=== PATIENT | female | born 1985 | race Caucasian/White ===

== ENCOUNTER → 2016-06-01 | Outpatient (CLI) | payer BC ==
[~2016-06-01] MED LIST: BCPILLS PO; SULF800T23 PO
[2016-06-01 09:42] LABS: HEMATOCRIT 37.7 % (37-47); MEAN CELL VOLUME 88.9 fL (80-100); MEAN CORPUSCULAR HEMOGLOBIN 31.6 pg (25-34); MEAN CORPUSCULAR HGB CONC 35.5 g/dl (32-36); MEAN PLATELET VOLUME 10.2 fL (7.4-10.4); PLATELET COUNT 215 K/uL (130-400); RED BLOOD COUNT 4.24 M/uL (4.2-5.4); WHITE BLOOD COUNT 4.32 K/uL (4.8-10.8)
[2016-06-01 10:10] LABS: PROLACTIN 6.57 ng/mL
[2016-06-01 11:32] LABS: BASO % 1.2 %; BASO ABS # 0.05 K/uL (0-0.2); COMPLETE YES; EOS % 2.5 %; LYMPH % 50.7 %; LYMPH ABS # 2.19 K/uL (1.2-3.4); MONO % 5.3 %; NEUT % 40.3 %
[2016-06-01 11:36] LABS: SMUDGE CELLS PRESENT
== END | disposition home or self-care (01) ==
LOC: C.LAB1850 07:54
PROVIDERS: ATTEND Obstetrics & Gynecology
DX: Z31.69 Encounter for other general counseling and advice on procreation (principal); Z31.41 Encounter for fertility testing

== ENCOUNTER → 2016-06-26 | Outpatient (CLI) | payer BC | END | disposition home or self-care (01) | LOC: C.LAB1850 09:13 | PROVIDERS: ATTEND Obstetrics & Gynecology | DX: Z32.01 Encounter for pregnancy test, result positive (principal) ==

== ENCOUNTER → 2016-07-04 | Outpatient (CLI) | payer BC | END | disposition home or self-care (01) | LOC: C.LABSPEC 16:07 | PROVIDERS: ATTEND Dermatology | DX: L08.9 Local infection of the skin and subcutaneous tissue, unspecified (principal) ==

== ENCOUNTER → 2016-07-17 | Outpatient (CLI) | payer BC ==
[2016-07-17 18:15] LABS: URINE APPEARANCE CLEAR (CLEAR); URINE BILIRUBIN NEG (NEG); URINE COLOR YELLOW; URINE NITRITE NEG (NEG); URINE SPECIFIC GRAVITY 1.021 (1.000-1.030); UROBILINOGEN NEG (NEG)
[2016-07-17 18:18] LABS: MANUAL MICROSCOPIC REQUIRED? NO; REVIEW REQ? NO
== END | disposition home or self-care (01) ==
LOC: C.LABSPEC 17:53
PROVIDERS: ATTEND Obstetrics & Gynecology
DX: O09.01 Supervision of pregnancy with history of infertility, first trimester (principal)

== ENCOUNTER → 2016-07-26 | Outpatient (CLI) | payer BC ==
[2016-07-28 01:09] LABS: CHLAMYDIA TRACH RNA*** NOT DETECTED (NOT DETECTED); GC (NEIS GONORRHOEAE)RNA** NOT DETECTED (NOT DETECTED)
== END | disposition home or self-care (01) ==
LOC: C.LABSPEC 10:48
PROVIDERS: ATTEND Obstetrics & Gynecology
DX: O09.01 Supervision of pregnancy with history of infertility, first trimester (principal); Z3A.00 Weeks of gestation of pregnancy not specified; Z01.419 Encounter for gynecological examination (general) (routine) without abnormal findings

== ENCOUNTER → 2016-07-26 | Outpatient (CLI) | payer BC | END | disposition home or self-care (01) | LOC: C.PAPS 13:49 | PROVIDERS: ATTEND Obstetrics & Gynecology | DX: Z01.419 Encounter for gynecological examination (general) (routine) without abnormal findings (principal) ==

== ENCOUNTER → 2016-09-24 | Outpatient (CLI) | payer BC ==
[2016-09-24 10:19] LABS: GTGD 50 Grams
== END | disposition home or self-care (01) ==
LOC: C.LAB1850 09:06
PROVIDERS: ATTEND Obstetrics & Gynecology
DX: O09.02 Supervision of pregnancy with history of infertility, second trimester (principal)

== ENCOUNTER → 2016-12-17 | Outpatient (CLI) | payer BC ==
[2016-12-17 11:08] LABS: URINE APPEARANCE CLEAR (CLEAR); URINE BILIRUBIN NEG (NEG); URINE COLOR DK YELLOW; URINE EPITHELIAL CELL AUTO 20-30 /lpf (0-5); URINE NITRITE NEG (NEG); URINE SPECIFIC GRAVITY 1.022 (1.000-1.030); UROBILINOGEN NEG (NEG)
[2016-12-17 11:09] LABS: MANUAL MICROSCOPIC REQUIRED? NO; REVIEW REQ? NO
[2016-12-17 12:16] LABS: HEMATOCRIT 33.8 % (37-47)
[2016-12-17 12:36] LABS: GTGD 50 Grams
== END | disposition home or self-care (01) ==
LOC: C.LAB1850 09:33
PROVIDERS: ATTEND Obstetrics & Gynecology
DX: O09.02 Supervision of pregnancy with history of infertility, second trimester (principal)

== ENCOUNTER → 2017-02-08 | Outpatient (CLI) | payer BC | END | disposition home or self-care (01) | LOC: C.LABSPEC 17:29 | PROVIDERS: ATTEND Obstetrics & Gynecology | DX: O09.03 Supervision of pregnancy with history of infertility, third trimester (principal) ==

== ENCOUNTER 2017-03-09 00:27 | Inpatient (IN) | payer BC ==
[~2017-03-09] VITALS: Ht 160 cm; Wt 68.3 kg
[2017-03-09] MEDS ORDERED: PRENTAB26 PO (01:09)
[2017-03-09 01:11] VITALS: Ht 160 cm; Wt 68.3 kg
[2017-03-09] MEDS ORDERED: BUPIVACAINE 0.25% 30 ML VIAL ONE (03:48)
[2017-03-09] MEDS ORDERED: EpHEDrine SULFATE INJ 50 MG/ML AMP ONE (03:48)
[2017-03-09] MEDS ORDERED: FENTANYL CITRATE INJ 50 MCG/1 ML 2 ML VIAL ONE (03:48)
[2017-03-09] MEDS ORDERED: LACTATED RINGER'S 1000ML 1,000 ML IV PRN ×2 (03:50→04:46)
[2017-03-09] MEDS ORDERED: FENTANYL 2MCG/ML ROPIV 1.25MG/ML 100ML BAG EPI ONE (03:52)
[2017-03-09 04:37] LABS: HEMOGLOBIN 12.2 g/dL (12.0-16.0); MEAN CELL VOLUME 89.2 fL (80-100); MEAN PLATELET VOLUME 10.9 fL (7.4-10.4); PLATELET COUNT 178 K/uL (130-400); RED CELL DISTRIBUTION WIDTH CV 12.2 % (11.5-14.5); RED CELL DISTRIBUTION WIDTH SD 39.3 fL (36.4-46.3); WHITE BLOOD COUNT 14.95 K/uL (4.8-10.8)
[2017-03-09] MEDS ORDERED: LACTATED RINGER'S 1000ML 1,000 ML IV SCH (04:46)
[2017-03-09 04:59] LABS: MEAN CORPUSCULAR HGB CONC 35.9 g/dl (32-36)
[2017-03-09] MEDS ORDERED: NALOXONE HCL INJ 1 MG in SODIUM CHLORIDE 0.9% 1000ML 1,000 ML IV PRN (05:22)
[2017-03-09] MEDS ORDERED: LACTATED RINGER'S 1000ML 500 ML IV PRN ×2 (05:22→13:18)
[2017-03-09] MEDS ORDERED: EpHEDrine SULFATE INJ 50 MG/ML AMP IV PRN (05:30)
[2017-03-09] MEDS ORDERED: NALBUPHINE HCL INJ 10 MG/ML AMP IV PRN (05:30)
[2017-03-09] MEDS ORDERED: DiphenhydrAMINE HCL 50 MG/ML VIAL IV PRN (05:30)
[2017-03-09] MEDS ORDERED: NALOXONE HCL INJ 0.4 MG/1 ML VIAL/CARP IV PRN (05:30)
[2017-03-09] MEDS ORDERED: ONDANSETRON INJ 2 MG/ML 2 ML VIAL IV PRN (05:30)
[2017-03-09] MEDS: FENTANYL 2MCG/ML ROPIV 1.25MG/ML 100ML BAG EPI PRN ×2 (06:54→14:44)
[2017-03-09] MEDS: LACTATED RINGER'S 1000ML 1,000 ML IV SCH ×2 (06:55→09:31)
[2017-03-09] MEDS ORDERED: OXYTOCIN 30 UNITS/500ML NSS IV ONE (13:26)
[2017-03-09] MEDS ORDERED: OXYTOCIN 30 UNITS/500ML NSS IV PRN ×2 (13:30→17:15)
--- NOTE | 2017-03-09 16:58 | Anesthesia Procedure Note ---
Anesthesia Epidural Removal Nt Date & Time Mar 09, 2017 at 16:57 Vital Signs Pain Intensity: 0.0 Notes Mental Status: alert / awake / arousable, participated in evaluation Nausea / Vomiting: adequately controlled Pain: adequately controlled Airway Patency, RR, SpO2: stable & adequate BP & HR: stable & adequate Hydration State: stable & adequate Neuraxial Anesthesia: was administered, sensory block is resolving Anesthetic Complications: no major complications apparent, pt satisfied with anesthetic care Epidural: removed without complications, with tip intact
[2017-03-09] MEDS ORDERED: ACETAMINOPHEN 325 MG TAB PO PRN (17:15)
[2017-03-09] MEDS ORDERED: SUPERCREAM 0.870 % 15GM JAR EXT PRN (17:15)
[2017-03-09] MEDS ORDERED: BENZOCAINE 20% AER SPR 82.5 GM CAN EXT PRN (17:15)
[2017-03-09] MEDS ORDERED: OXYCODONE/ACETAMINOPHEN 5-325 TAB PO PRN (17:15)
[2017-03-09] MEDS ORDERED: LANOLIN OINT EXT PRN (17:15)
[2017-03-09] MEDS ORDERED: IBUPROFEN 600 MG TAB ONE (18:17)
--- NOTE | 2017-03-09 18:45 | DELIVERY SUMMARY ---
DATE OF OPERATION: 03/09/2017 The patient is a 31-year-old G1, P0 white female EDC of 03/06/2017 who presented in spontaneous labor. She progressed to 6-7 cm dilated, membranes were ruptured for clear fluids. She had effective epidural analgesia. She pushed intermittently because of moderate variables with pushing until there was resolution of the variables. The contractions were noted to have spaced out. Pitocin augmentation was begun. She then was able to push more effectively, however there was continued to be moderate variables with pushing and there was evidence of maternal exhaustion and decreased effort. The vacuum was placed on the outlet vertex after emptying the bladder for 250 mL of urine. Through 1 contraction, the head was brought to . Through the next contraction, the patient was able to push the infant out. Mouth and nasopharynx were suctioned on the perineum. The infant was placed on the mother's abdomen for further warming and attention. Cord was short and was clamped and cut prior to 30 seconds after delivery. There was spontaneous cry. Apgars were 7 and 9. The placenta was expressed intact with a 3-vessel cord. A second-degree perineal laceration was repaired with 3-0 chromic in the usual fashion . Estimated blood loss was 250 mL. Mother and were doing well after delivery. I attest to the content of the Intraoperative Record and any orders documented therein. Any exceptions are noted below. MTDD
[2017-03-09] MEDS ORDERED: OXYCODONE/ACETAMINOPHEN 5-325 TAB ONE (18:49)
[2017-03-09 19:45] VITALS: BP 110/69; PULSE 89; TEMP 36.8
[2017-03-09] MEDS: DOCUSATE SODIUM 100 MG CAP PO SCH (21:02)
[2017-03-10 00:01] VITALS: BP 101/61; PULSE 73; TEMP 36.8
[2017-03-10] MEDS: IBUPROFEN 600 MG TAB PO PRN ×4 (02:12→18:16)
[2017-03-10 03:50] VITALS: BP 106/67; PULSE 80; TEMP 36.8
[2017-03-10 06:01] LABS: HEMATOCRIT 32.2 % (37-47); HEMOGLOBIN 11.2 g/dL (12.0-16.0)
[2017-03-10 07:55] VITALS: BP 97/61; PULSE 84; TEMP 36.7; O2SAT 97
--- NOTE | 2017-03-10 08:50 | Progress Note ---
Subjective Mar 10, 2017. Subjective conversation w/ patient, physical exam Ambulation: ambulating normally Comment: had to be straight cathed for 1250 ccof urine last night. since then she has been able to void without difficulty Review of Systems Constitutional: No fever, No chills, No sweats, No weight loss, No weakness, No fatigue, No problem reported Abdomen: No pain, No nausea, No vomiting, No diarrhea, No constipation, No GI bleeding, No problem reported Female : No see HPI, No dysuria, No urinary frequency, No hematuria, No incontinence, No abnormal vaginal bleeding, No vaginal discharge, No problem reported Objective Vital Signs Date Time Temp Pulse Resp B/P (MAP) Pulse Ox O2 Delivery O2 Flow Rate FiO2 03/10/17 07:55 36.7 84 15 97/61 (73) 97 Room Air 03/10/17 03:50 36.8 80 18 106/67 (80) Room Air 03/10/17 00:01 Room Air 03/10/17 00:01 36.8 73 18 101/61 (74) Room Air 03/09/17 19:45 36.8 89 18 110/69 (83) Room Air Physical Exam General Appearance: WELL-APPEARING, NO APPARENT DISTRESS Abdomen: non tender, soft Fundus: Firm, Non-Tender Incision Description: Drainage Circled (1 below u) Extremities: no calf tenderness Laboratory Results Last 24 Hours Test 03/10/17 05:35 Hemoglobin 11.2 g/dL Hematocrit 32.2 % Assessment and Plan Day#: 1 Continue Routine Care: stable course continue current care plan.
[2017-03-10] MEDS: DOCUSATE SODIUM 100 MG CAP PO SCH ×2 (09:05→20:02)
[2017-03-10] MEDS: PRENATAL VITAMIN TAB PO SCH (09:06)
[2017-03-10 10:59] VITALS: BP 128/71; PULSE 82; TEMP 36.5; O2SAT 98
[2017-03-10 15:30] VITALS: BP 115/72; PULSE 81; TEMP 36.4
[2017-03-10] MEDS ORDERED: BISACODYL 5 MG TABEC PO SCH (20:00)
[2017-03-10 23:30] VITALS: BP 110/73; PULSE 66; TEMP 36.5
--- NOTE | 2017-03-11 03:08 | Discharge Instructions ---
Discharge Instructions Date of Service Mar 11, 2017. Admission Reason for Admission: LABOR Discharge Discharge Diagnosis / Problem: normal labor & delivery Discharge Goals Goal(s): Routine recovery after delivery Medications Continue Dispensed Medications: supercream, dermaplast, tucks, lansinoh Activity Recommendations Activity Limitations: per Instructions/Follow-up section . Instructions / Follow-Up Instructions / Follow-Up ACTIVITY RECOMMENDATIONS: * Gradual return to full activity over the next 2-3 weeks. * No lifting - nothing heavier than baby over the next 2-3 weeks. * Do not engage in vigorous exercise, sexual activity or sports until cleared by your physician. * Do not drive or operate any motorized equipment until cleared by your physician. * You may shower/bathe daily. MEDICATIONS: For discomfort or pain, you may use Acetaminophen (Tylenol), Ibuprofen (Advil), or Naproxen (Aleve) following the package directions. For constipation you may use Colace following the package directions. BREAST CARE: If you are not breast feeding: * Wear a supportive bra 24 hours a day for one to two weeks. * Avoid stimulating your breasts and nipples as much as possible during the first few weeks after delivery. * When taking a shower, have the warm water hit your back, not breasts. * When your breasts feel full, apply ice packs. Usually three to four times a day helps ease the discomfort. * Take a mild pain medication (Tylenol / Motrin) when you are uncomfortable. If breast feeding: * Use breast milk to lubricate nipples. Lansinoh cream may be used for sore nipples. You do not need to remove cream prior to breast feeding. If using a different brand of cream, check the label for directions regarding removal of cream prior to nursing. * Wear a supportive bra. * If having problems with breasts or breast feeding, call a oracle distribution consultant or your health care provider. EPISIOTOMY CARE: After delivery, if you have an episiotomy (stitches), the following steps will ease discomfort and aid healing. * For the first 24 hours after delivery, place ice packs next to your episiotomy to help reduce swelling. * After the first 24 hour-period, sitz baths, either portable or in the tub, are suggested. A shower with a shower arm sprayed over the episiotomy may be comforting. * Nancy care should be done after each voiding and bowel movement. Squirt warm water from a plastic bottle over the perineum (region of the body between the anus and urinary opening) and pat dry. * Use Dermoplast to ease discomfort. Shake container. [place] directly over the episiotomy. Place a Tucks on a clean sanitary pad next to your episiotomy. SPECIAL CARE INSTRUCTIONS: When you are discharged from the hospital, it is important for you to follow the instructions listed below: * During the first week at home, you should be able to care for yourself and your baby. In addition, the usual light household activities are encouraged. * Limit your activities to the way you feel. Do not try to clean the house or move furniture. Be sensible. * If you actively engage in sports and have done so up until the time of your delivery, you may resume these activities as soon as you feel able. This may take up to one month or even longer. Use good judgment. * Continue to take your vitamins for at least six weeks after the of your baby. * Your diet need not be limited unless you were on a special diet before your delivery. Breast-feeding mothers need around 2500 calories per day and at least 64-80 ounces of fluid per day (8 to 10 glasses). * You should eat foods from the four major food groups. Crash diets or fad diets are to be avoided. Eating lean meats, fresh fruits and vegetables, low-fat dairy products, high fiber foods and a regular exercise program, will help you get back to your pre- weight without putting your health at risk. * Constipation is sometimes a problem after delivery. Take a mild laxative as needed. If breast feeding, Milk of Magnesia is acceptable to use. You may use a suppository or Fleets enema if no episiotomy. * A daily shower or tub bath is suggested. Be sure to thoroughly and gently dry the perineum. * A bloody vaginal discharge will usually continue until around four weeks post . A small amount of bleeding may continue for as long as six weeks. Vaginal discharge changes from the bright red bleeding after delivery to pink then brownish and finally yellowish-pink before becoming white and disappearing. * Bleeding may increase with activity. Your first period may come in 4-8 weeks. If you are breast feeding, your period may be delayed even longer. * [place] (sex) can begin whenever both you and your partner feel comfortable and do not have any form of genital infection. It is recommended that you wait at least six weeks for internal and external healing to occur. If you have questions, please talk to your health care practitioner. A condom should be used to prevent infection and . * Foreplay, gentle intercourse and lubrication is very important the first several times to prevent pain. A water-based lubricant such as K-Y jelly or Astroglide may be used. * If you have RH negative blood and your baby is RH positive, you will receive RHOGAM by injection prior to discharge. The nurse will give you a card to keep with you that has the date and place that you received RHOGAM after delivery. * During your care, you had a Rubella screen done to check for the presence of rubella antibodies in your blood. If your test was negative, you will receive a Rubella vaccine prior to discharge. This vaccine may cause a fever, soreness at the injection site and flu-like symptoms. If these symptoms persist, notify your health care practitioner. is not advised for one month after a Rubella vaccine. * Verbalizes understanding of car seat law as reviewed with patient nursing. * Car Seat hand-out given and reviewed with patient by nursing. * Shaken baby information reviewed with patient by nursing. Call you doctor if: * Heavy bleeding (saturating several pads an hour) or passing clots the size of your fist. * A fever >101 degrees F (38.3 degrees C) on two occasions four hours apart and /or chills. * Unusual pain in the pelvic or vaginal areas. * "Baby Blues" lasting longer than two weeks. If you have any questions or concerns, call your health care practitioner at . FOLLOW UP VISIT: * Please call the office at to schedule a 6 week examination. It is important you keep this appointment. It is important for you to make arrangements for either yearly or twice yearly check-ups thereafter. Current Hospital Diet Patient's current hospital diet: Regular OB Diet Discharge Diet Recommended Diet: Regular OB Diet Procedures Procedures Performed: vaccuum assisted vagianl delivery Pending Studies Studies pending at discharge: no Medical Emergencies . Who to Call and When: Medical Emergencies: If at any time you feel your situation is an emergency, please call 911 immediately. . Non-Emergent Contact Non-Emergency issues call your: Installation Specialist . . "Provider Documentation" section prepared by Elle Johnson. . VTE Core Measure Inpt VTE Proph given/why not?: Treatment not indicated
[2017-03-11] MEDS: IBUPROFEN 600 MG TAB PO PRN ×2 (04:29→08:20)
--- NOTE | 2017-03-11 07:17 | Progress Note ---
Subjective Mar 11, 2017. Subjective conversation w/ patient, physical exam Ambulation: ambulating normally Voiding: no voiding problems Passing Gas: Yes Diet Tolerance: Regular Diet Lochia: Small Feeding Type: Breast Feeding Review of Systems Constitutional: No fever, No chills, No sweats, No weight loss, No weakness, No fatigue, No problem reported Abdomen: No pain, No nausea, No vomiting, No diarrhea, No constipation, No GI bleeding, No problem reported Female : No see HPI, No dysuria, No urinary frequency, No hematuria, No incontinence, No abnormal vaginal bleeding, No vaginal discharge, No problem reported Objective Vital Signs Date Time Temp Pulse Resp B/P (MAP) Pulse Ox O2 Delivery O2 Flow Rate FiO2 03/10/17 23:30 Room Air 03/10/17 23:30 36.5 66 18 110/73 (85) Room Air 03/10/17 15:30 36.4 81 20 115/72 (86) Room Air 03/10/17 15:30 Room Air 03/10/17 10:59 36.5 82 14 128/71 (90) 98 Room Air 03/10/17 08:40 Room Air 03/10/17 07:55 36.7 84 15 97/61 (73) 97 Room Air Physical Exam General Appearance: WELL-APPEARING, NO APPARENT DISTRESS Abdomen: non tender, soft Fundus: Firm, Non-Tender, Relation to Umbilicus (at umbilicus) Extremities: no calf tenderness Assessment and Plan Day#: 2 Continue Routine Care: stable course continue current care plan discharge to home follow up in 6 weeks.
[2017-03-11 07:57] VITALS: BP 122/83; PULSE 73; TEMP 36.9
[2017-03-11] MEDS: PRENATAL VITAMIN TAB PO SCH (08:20)
[2017-03-11] MEDS: DOCUSATE SODIUM 100 MG CAP PO SCH (08:20)
[2017-03-11 13:40] VITALS: BP_DIAS 83; PULSE 73; TEMP 36.9
== END 2017-03-11 14:32 | disposition home or self-care (01) | DRG 775 ==
LOC: C.OPB 00:27 → C.LD 00:27 → C.OPB 03:51 → C.OBG 19:28
PROVIDERS: ADMIT Obstetrics & Gynecology; ATTEND Obstetrics & Gynecology
PROC: 10D07Z6 Extraction of Products of Conception, Vacuum, Via Natural or Artificial Opening (ICD-10-PCS; principal; 2017-03-09)
PROC: 0KQM0ZZ Repair Perineum Muscle, Open Approach (ICD-10-PCS; principal; 2017-03-09)
DX: O48.0 Post-term pregnancy (principal); O70.1 Second degree perineal laceration during delivery; O75.81 Maternal exhaustion complicating labor and delivery; Z3A.40 40 weeks gestation of pregnancy; Z37.0 Single live birth

== ENCOUNTER → 2017-10-09 | Outpatient (CLI) | payer BC ==
[~2017-10-09] MED LIST changes: -BCPILLS PO; +PRENTAB26 PO; -SULF800T23 PO
== END | disposition home or self-care (01) ==
LOC: C.LAB1850 08:00
PROVIDERS: ATTEND Physician Assistant
DX: Z00.00 Encounter for general adult medical examination without abnormal findings (principal)

== ENCOUNTER 2022-03-12 23:00 | Inpatient (IN) ==
[2022-03-12] MEDS ORDERED: PENICILLIN G POTASSIUM 6 MU in DEXTROSE 5% 250 ML IV STA (23:14)
[2022-03-12] MEDS ORDERED: OXYTOCIN 30 UNITS/500 ML BAG IV PRN (23:14)
[2022-03-12] MEDS ORDERED: LIDOCAINE 1% LOCAL 20 ML VIAL INFIL PRN (23:14)
--- NOTE | 2022-03-12 23:17 | History & Physical Report ---
Date of Service March 12, 2022 Assessment & Plan (1) Encounter for supervision of normal in multigravida: Plan: Admit to L&D. EFM/toco. Labs. Penicillin for GBS+ Desires epidural. History of Present Illness Chief Complaint: labor Primary Care Provider: NO PCP 36yo @ 40 2, spontaneous rupture of membranes at 10 pm tonight, clear fluid. +ctx. + movement. No vaginal bleeding. GBS+ Allergies Allergy/AdvReac Type Severity Reaction Status Date / Time isoniazid Allergy Intermediate elevated Verified 03/07/22 14:30 LFTs Home Medications Medication Instructions Recorded Confirmed Type Multivit/Min/Iron/Fol Ac/Pren 1 tab PO DAILY #0 tabs 03/09/17 03/07/22 History ( Vitamin) Patient History Medical History Anxiety History of chicken pox Tuberculin skin test (TST) positive Surgical History S/P tonsillectomy S/P wisdom tooth extraction Family History Other Heart disease Hypertension Denies family history of Ovarian cancer Breast cancer Colorectal cancer Uterine cancer Social History Smoking Status: Never smoker Hx Alcohol Use: Yes Hx Substance Use: No marital status: marital status details: Mando Hassan (89 Current Living Situation: Family Current Living Situation Comment: lives with spouse, son, dogs current occupational status: employed current occupation: [employer] Review of Systems All systems reviewed & are unremarkable except as noted in HPI & below Physical Exam Physical Exam: FHT Cat 1 Purvis Q 4 min SVE 2-3 cm per RN Constitutional: WD/WN, vitals as above Respiratory: normal respiratory effort, lungs clear to auscultation no respiratory distress Cardiovascular: Rate/Rhythm: regular rate and regular rhythm Gastrointestinal (Abdomen): Inspection/Auscultation: abdomen normal to inspection Percussion/Palpation: abdomen soft; abdomen nontender Gravid. No s/s chorio or abruption. Skin: no rashes, warm and dry Psychiatric: A+Ox3, euthymic affect Results & Data ([facility]) Vital Signs (Past 12 Hours) Vital Signs Pulse BP 03/12/22 23:14 67 125/76 Coding Level of Care Code None Diagnoses Encounter for supervision of normal in multigravida Z34.80
[2022-03-12 23:43] LABS: Hematocrit (blood only) 32.4 % (34.1-44.9); Mean Corpuscular Hemoglobin 27.5 pg (25.0-34.0); Mean Platelet Volume 11.4 fL (9.4-12.3); Nucleated RBC # (auto) 0.03 K/uL (0-0); Nucleated RBC % (auto) 0.2 %; Platelet Count 219 K/uL (130-400); RDW Coefficient of Variation 13.6 % (11.5-14.5); RDW Standard Deviation 39.4 fL (36.4-46.3)
[2022-03-12] MEDS: LACTATED RINGER'S 1,000 ML IV PRN (23:48)
[2022-03-13] MEDS ORDERED: SODIUM CHLORIDE 0.9% INJ 10 ML VIAL ONE (00:07)
[2022-03-13] MEDS ORDERED: fentaNYL citrate 100 MCG/2 ML VIAL ONE (00:07)
[2022-03-13] MEDS ORDERED: ePHEDrine sulfate 50 MG/ML AMP ONE (00:07)
[2022-03-13] MEDS ORDERED: LIDOCAINE 2%/EPINEPHRINE 1:200,000 20 ML SDV ONE (00:08)
[2022-03-13] MEDS ORDERED: fentaNYL 2MCG/ML ROPIVACAINE 1.25MG/ML 100 ML BAG EPI ONE (00:08)
[2022-03-13] MEDS ORDERED: BUPIVACAINE 0.25% 30 ML VIAL ONE (00:08)
[2022-03-13] MEDS ORDERED: diphenhydrAMINE 50 MG/ML VIAL IV PRN (00:50)
[2022-03-13] MEDS ORDERED: NALOXONE HCL 1 MG in SODIUM CHLORIDE 0.9% 1000ML 1,000 ML IV PRN (00:50)
[2022-03-13] MEDS ORDERED: fentaNYL 2MCG/ML ROPIVACAINE 1.25MG/ML 100 ML BAG EPI PRN (00:50)
[2022-03-13] MEDS ORDERED: NALOXONE HCL 0.4 MG/1 ML VIAL/CARP IV PRN (00:50)
[2022-03-13] MEDS ORDERED: NALBUPHINE HCL INJ 10 MG/ML AMP IV PRN (00:50)
[2022-03-13] MEDS ORDERED: ePHEDrine sulfate 50 MG/ML AMP IV PRN (00:50)
--- NOTE | 2022-03-13 00:50 | Anesthesiology Consultation ---
Date of Service March 13, 2022 Assessment & Plan (1) Encounter for pre-operative examination: Chart Review Chart Review: Patient NOT seen in Pre Admission Testing and Acceptable Risk for Labor Epidural Consults Requested none History Height/Weight Height: 5 ft 3 in Weight: 76.022 kg Allergies Allergy/AdvReac Type Severity Reaction Status Date / Time isoniazid Allergy Intermediate elevated Verified 03/07/22 14:30 LFTs Medications Home Medications Medication Instructions Recorded Confirmed Last Taken Multivit/Min/Iron/Fol Ac/Pren 1 tab PO DAILY #0 tabs 03/09/17 03/07/22 Unknown ( Vitamin) Active Medications Generic Name Dose Route Start Last Admin Trade Name Freq PRN Reason Stop Dose Admin Lactated Ringer's 1,000 mls @ 125 mls/hr 03/12/22 23:14 03/13/22 00:17 Lr IV 03/14/22 23:13 999 mls/hr .Q8H PRN Infusion L&D Protocol Protocol Past Medical History Medical History Anxiety History of chicken pox Tuberculin skin test (TST) positive Past Family History Family History Other Heart disease Hypertension Denies family history of Ovarian cancer Breast cancer Colorectal cancer Uterine cancer Past Surgical History Surgical History S/P tonsillectomy S/P wisdom tooth extraction Social History Smoking Status: Never smoker Hx Substance Use: No substance use type: does not use Physical Exam Vital Signs Last Vital Signs Pulse 77 03/13/22 00:47 Resp 20 03/12/22 23:07 BP 140/60 03/12/22 23:58 Pulse Ox 99 03/13/22 00:47 Testing Laboratory Results 03/12/22 23:23
[2022-03-13] MEDS: LACTATED RINGER'S 1,000 ML IV PRN (00:58)
[2022-03-13] MEDS: PENICILLIN G POTASSIUM 3 MU in DEXTROSE 5% 100 ML IV PRN ×2 (03:46→07:53)
[2022-03-13] MEDS ORDERED: OXYTOCIN 30 UNITS/500 ML BAG IV PRN ×2 (07:05→12:01)
[2022-03-13] MEDS ORDERED: HYDROCORTISONE ACETATE 25 MG SUPP PR PRN (12:01)
[2022-03-13] MEDS ORDERED: DIPHTHERIA/TETANUS/PERTUSSIS 0.5mL SYR/VIAL (Age 7+yrs) IM ONE (12:01)
[2022-03-13] MEDS ORDERED: bisacodyL 10 MG SUPP PR PRN (12:01)
[2022-03-13] MEDS ORDERED: BENZOCAINE 20% AER SPR 82.5 GM CAN EXT PRN (12:01)
--- NOTE | 2022-03-13 12:08 | Delivery Summary ---
Vaginal Delivery Summary Date of Service March 13, 2022 Vaginal Delivery Summary VAVD Operative vaginal delivery note the patient had presented in spontaneous labor with rupture of membranes initially attempted to push but baby was in occiput posterior position we rested for a while and try to push however she was having recurrent prolonged bradycardias after pushing at this stage I suggested the option of the vacuum patient agreed she had had 1 before we discussed the risks the station was +1 and again direct occiput posterior position. Initially we attempted with a mighty VAC however because of caput I was unable to get a good seal and it popped off easily with out real effort at this stage we then applied a kiwi and this attached much better to the head and I was able to pull with just 1 pop-off total of 3 contractions were used of all the vacuum's and then baby was delivered in occiput posterior position vacuum was detached and baby was delivered delivered by gentle traction no excessive force easy delivery at this stage live vigorous male cord clamped and cut cord blood obtained cord gases obtained placenta removed with traction a small midline episiotomy was had been made to allow delivery and this was repaired with 3-0 Vicryl once delivery of the placenta IV Pitocin started uterine tone improved sponge and instrument counts correct estimated blood loss 200 mL should be noted to be drained the bladder and station was +1 prior to applying the vacuum [facility] Vaginal Delivery Charge Delivery Type Details: [facility]
[2022-03-13 12:27] LABS: Base Excess Cord Arterial Bld -5.8 mEq/L (-9-1.8); CO2 Cord Arterial Blood 61 mmHg (39.1-73.5); HCO3 Cord Arterial Blood 23 mmol/L (19.7-28.5); Oxygen Sat Cord Arterial Blood < 60.0 % (<60); PO2 Cord Arterial Blood 13 mmHg (4.1-31.7); pH Cord Arterial Blood 7.19 (7.1-7.38)
[2022-03-13 12:29] LABS: Base Excess Cord Venous Blood -6.8 mEq/L (-7.7-1.9); Cord Venous Blood HCO3 20 mmol/L (18.4-26.8); Cord Venous Blood PCO2 42 mmHg (30.4-57.2); Cord Venous Blood PO2 26 mmHg (14.1-43.3); Cord Venous Blood pH 7.28 (7.20-7.44); O2 Saturation Cord Venous Bld < 60.0 % (<68)
--- NOTE | 2022-03-13 12:30 | Anesthesia Procedure Note ---
Date of Service March 13, 2022 Anesthesia Post Epidural Note Vital Signs Vital Signs: Temp Pulse Resp BP Pulse Ox 98.2 F 73 20 129/65 98 03/13/22 09:31 03/13/22 12:25 03/13/22 09:31 03/13/22 12:25 03/13/22 11:27 Pain Intensity Lower Abdomen: Pain Intensity: 4 Notes Mental Status: alert / awake / arousable and participated in evaluation Nausea / Vomiting: adequately controlled Pain: adequately controlled Airway Patency, RR, SpO2: stable & adequate BP & HR: stable & adequate Hydration State: stable & adequate Neuraxial Anesthesia: was administered and sensory block is resolving Anesthetic Complications: no major complications apparent and Pt Satisfied with anesthetic care Epidural: Removed without complications and With tip intact
[2022-03-13] MEDS: IBUPROFEN 600 MG TAB PO PRN ×3 (13:36→21:59)
[2022-03-13] MEDS: ACETAMINOPHEN 325 MG TAB PO PRN (16:55)
[2022-03-13] MEDS: DOCUSATE SODIUM 100 MG CAP PO SCH (22:00)
[2022-03-14] MEDS: ACETAMINOPHEN 325 MG TAB PO PRN (04:22)
--- NOTE | 2022-03-14 06:32 | Obstetrical Progress Note ---
Date of Service <Haley Polo MD - Last Filed: 03/14/22 06:54> March 14, 2022 Assessment & Plan <Haley Polo MD - Last Filed: 03/14/22 06:54> (1) Status post vacuum-assisted vaginal delivery: 36yo @ 40 2/ who came in with SROM now PPD1 after vacuum assisted vaginal delivery. Tolerating PO. Encourage ambulation. Satisfactory post progress. GBS+ treated during labor. Leia Bashir, MS3 contributed to the history and physical portion of this note. <Blair Moeller MD, FACOG - Last Filed: 03/14/22 08:48> (1) Status post vacuum-assisted vaginal delivery: Subjective <Haley Polo MD - Last Filed: 03/14/22 06:54> Ambulation: ambulating normally Voiding: no voiding problems Passing Gas:: Yes Diet Tolerance:: regular diet Lochia:: Small Feeding Type:: breast feeding Physical Exam <Haley Polo MD - Last Filed: 03/14/22 06:54> Constitutional WD/WN, vitals as above Respiratory normal respiratory effort, lungs clear to auscultation Cardiovascular RRR, no murmur, no edema Extremities: no calf tenderness Psychiatric A+Ox3, euthymic affect Genitourinary OB Exam Abdomen: + fundal height (@ the level of the umbilicus) Fundus: + firm Results & Data ([facility]) <Haley Polo MD - Last Filed: 03/14/22 06:54> Vital Signs (Past 12 Hours) Vital Signs Temp Pulse Resp BP Pulse Ox O2 Del Method 03/14/22 04:10 36.9 C 70 16 110/68 97 Room Air 03/14/22 00:30 37 C 68 16 102/65 97 Room Air 03/13/22 22:00 37 C 71 18 115/74 96 Room Air <Blair Moeller MD, FACOG - Last Filed: 03/14/22 08:48> Co-Signing Physician Notes Resident Physician Supervision Note: I was present with Dr. Polo during the history and exam. I discussed the case with the resident and agree with the findings and plan as documented in the note. Any exceptions or clarifications are listed here: [None] Documented By: Blair Moeller MD, FACOG Resident Activity Tracking <Haley Polo MD - Last Filed: 03/14/22 06:54> Resident Involvement: Resident Care Provided Care Provided: OB Delivery
[2022-03-14 06:59] LABS: Hematocrit (blood only) 31.4 % (34.1-44.9); Hemoglobin 10.6 g/dl (12.0-16.0); Mean Corpuscular Hemoglobin 27.7 pg (25.0-34.0); Mean Corpuscular Hgb Conc 33.8 g/dL (32.0-36.0); Nucleated RBC # (auto) 0.02 K/uL (0-0); Nucleated RBC % (auto) 0.1 %; Platelet Count 205 K/uL (130-400); Red Blood Count 3.83 M/uL (3.93-5.22); White Blood Count 17.43 K/ul (4.8-10.8)
[2022-03-14] MEDS ORDERED: PRENATAL VITAMIN 1 TAB PO SCH (08:00)
[2022-03-14] MEDS: IBUPROFEN 600 MG TAB PO PRN ×2 (08:09→14:15)
[2022-03-14] MEDS: DOCUSATE SODIUM 100 MG CAP PO SCH (08:09)
[2022-03-14] MEDS ORDERED: bisacodyL 5 MG TABEC PO SCH (20:00)
--- NOTE | 2022-03-19 07:23 | Discharge Summary ---
Date of Service March 19, 2022 Admission HPI Per Admitting Provider 36yo @ 40 2/, spontaneous rupture of membranes at 10 pm tonight, clear fluid. +ctx. + movement. No vaginal bleeding. GBS+ Discharge Data Consultations 03/12/22 23:14 Consult Anesthesiology Stat Hospital Course (1) Status post vacuum-assisted vaginal delivery: 36yo @ 40 2/ who came in with SROM now PPD1 after vacuum assisted vaginal delivery. Tolerating PO. Encourage ambulation. Satisfactory post progress. GBS+ treated during labor. Leia Bashir MS3 contributed to the history and physical portion of this note. Supervising Physician Co-Signing Physician Notes Resident Physician Supervision Note: I was present with Dr. Polo during the history and exam. I discussed the case with the resident and agree with the findings and plan as documented in the note. Any exceptions or clarifications are listed here: [None] Documented By: Blair Moeller MD, FACOG Coding Level of Care Code None Diagnoses Status post vacuum-assisted vaginal delivery Z87.59
== END 2022-03-14 14:20 | disposition home or self-care (01) | DRG 807 ==
LOC: OPB 23:00 → 4S1 23:03 → 4E2 03-13 15:14